=== PATIENT | male | born 1980 | race Caucasian/White ===

== ENCOUNTER 2021-10-07 15:25 | Emergency (ER) | payer OTHER, SELFPAY ==
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
[2021-10-07 15:35] VITALS: BP 121/77; PULSE 71; RESP 14; TEMP 36.7; O2SAT 97
[2021-10-07 15:45] VITALS: BP 121/77; PULSE 71; RESP 14; TEMP 36.7; O2SAT 97
== END 2021-10-07 15:46 | disposition home or self-care (01) ==
PROVIDERS: Emergency Provider Nurse Practitioner Family; PCP Internal Medicine
DX: T21.12XA Burn of first degree of abdominal wall, initial encounter (principal); X15.3XXA Contact with hot saucepan or skillet, initial encounter; Z79.82 Long term (current) use of aspirin; I25.10 Atherosclerotic heart disease of native coronary artery without angina pectoris; Z95.5 Presence of coronary angioplasty implant and graft; I25.2 Old myocardial infarction; J44.9 Chronic obstructive pulmonary disease, unspecified; K21.9 Gastro-esophageal reflux disease without esophagitis; F32.A Depression, unspecified
CPT/HCPCS: 99213; G0463

== ENCOUNTER 2022-01-24 09:47 | Emergency (ER) | payer OTHER, SELFPAY ==
--- NOTE | ~2022-01-24 | XR_ITS ---
EXAMINATION: XR chest 2V DATE: 01/24/2022 10:32 INDICATION: Coarse lung sounds, cough TECHNIQUE: PA and lateral views of the chest are obtained. COMPARISON: 03/18/2018 FINDINGS: There are minimal airspace opacities of the right middle lobe. No pleural effusion or pneum othorax. The cardiomediastinal silhouette is normal. The visualized bones and soft tissues are unrema rkable. IMPRESSION: 1. Minimal airspace opacities of the right middle lobe, consistent with atelectasis versus pneumonia. Reviewed, dictated and finalized at location A. [facility] IMPRESSION: 1. Minimal airspace opacities of the right middle lobe, consistent with atelect asis versus pneumonia.
[2022-01-24 09:57] VITALS: BP 127/78; PULSE 74; RESP 24; TEMP 36.3; O2SAT 95
--- NOTE | 2022-01-24 10:19 | ED.URI ---
HPI - URI/Sore Throat General Chief Complaint: Upper Respiratory Infection Stated Complaint: cough throat ear pain eyes matting Time Seen by Provider: 01/24/22 10:19 Source: patient, RN notes reviewed and old records reviewed Mode of arrival: ambulatory Limitations: no limitations History of Present Illness HPI Narrative: [age] year male presents to the [facility] with of throat pain, ear pain, eyes matted, Cough. Has a history of asthma. patient acutely ill. Denies fevers. Related Data Home Medications Medication Instructions Recorded Confirmed aspirin 81 mg chewable tablet 81 mg PO DAILY 10/07/21 01/24/22 atorvastatin 80 mg tablet 80 mg PO DAILY 10/07/21 01/24/22 carbamazepine 200 mg tablet 200 mg PO Q12H 10/07/21 01/24/22 fenofibrate 160 mg tablet 160 mg PO DAILY 10/07/21 01/24/22 glimepiride 1 mg tablet 1 mg PO DAILY 10/07/21 01/24/22 isosorbide dinitrate 30 mg tablet 30 mg PO BID 10/07/21 01/24/22 loratadine 10 mg tablet 10 mg PO DAILY 10/07/21 01/24/22 metoprolol succinate 100 mg 100 mg PO DAILY 10/07/21 01/24/22 tablet,extended release 24 hr pioglitazone 15 mg tablet 15 mg PO DAILY 10/07/21 01/24/22 ticagrelor 90 mg tablet (Brilinta) 90 mg PO Q12H 10/07/21 01/24/22 trazodone 50 mg tablet 50 mg PO HS 10/07/21 01/24/22 ziprasidone HCl 60 mg capsule 60 mg PO BID 10/07/21 01/24/22 albuterol sulfate 90 mcg/actuation See Rx Instructions .Route 01/24/22 01/24/22 aerosol inhaler .COMPLEX PRN sob Allergies Allergy/AdvReac Type Severity Reaction Status Date / Time famotidine Allergy Mild Rash Verified 10/07/21 15:41 lansoprazole Allergy Unknown Rash Verified 10/07/21 15:41 Review of Systems Review of Systems: All systems reviewed & are unremarkable except as noted in HPI and below Constitutional: Constitutional: Reports as per HPI, Reports chills, Reports fatigue and Reports fever(s) Eyes: Eyes: Reports as per HPI, Denies change in vision and Denies photophobia ENT: Reports as per HPI Cardiovascular: Cardiovascular: Reports no additional cardiovascular complaints Respiratory: Respiratory: Reports chest congestion, Reports cough and Reports dyspnea Gastrointestinal: Gastrointestinal: Reports no additional gastrointestinal complaints Musculoskeletal: Musculoskeletal: Reports no additional musculoskeletal complaints Integumentary/Breasts: Skin/Breast: Reports system reviewed and no additional complaints, except as docu Neurologic: Reports system reviewed and no additional complaints, except as documented Psychiatric: Psychiatric: Reports no additional psychiatric complaints Allergic/Immunologic: Allergic/Immunologic: Reports no additional allergic/immunologic complaints PMFSH Past Medical History Medical History Asthma Diabetes High cholesterol History of high blood pressure Comments At the time of my signature, I reviewed and agree with the nursing past medical, surgical, social, and family history. There is no relevant family history pertinent to the patient complaint. Exam Const: General: comfortable, no acute distress, well developed, alert, ill appearing ( acute on chronic) acutely and chronically and well nourished Nutritional Appearance: well nourished and obese morbidly obese Orientation/consciousness: patient oriented x3 Limitations: no limitations HENMT: Head: normal to inspection Ears: external ears normal, TM's normal bilaterally and EAC's normal Face/Nose/Sinus: Normal external nose present and Normal nares present Face and sinus: normal facial exam Mouth: Yes Normal oral and palatal mucosa present, Yes lip normal and Yes moist mucous membranes Throat: posterior oropharynx normal and uvula midline Eyes: General: appearance normal, both eyes and all related structures Pupils: Equal, round and reactive pupils present Neck: Neck: normal visual inspection, full ROM, no lymphadenopathy and no meningeal signs Chest: Ches
== END 2022-01-24 11:25 | disposition home or self-care (01) ==
PROVIDERS: Emergency Provider Nurse Practitioner; PCP Internal Medicine
DX: J18.1 Lobar pneumonia, unspecified organism (principal); H10.9 Unspecified conjunctivitis; Z20.822 Contact with and (suspected) exposure to COVID-19; M19.90 Unspecified osteoarthritis, unspecified site; E78.00 Pure hypercholesterolemia, unspecified; I10 Essential (primary) hypertension; E11.9 Type 2 diabetes mellitus without complications; Z79.82 Long term (current) use of aspirin
CPT/HCPCS: 71046; 87081; 87426; 87804; 87880; 99213; C9803; G0463

== ENCOUNTER 2022-02-11 11:07 | Emergency (ER) | payer OTHER, SELFPAY ==
--- NOTE | 2022-02-11 11:13 | ED.URI ---
HPI - URI/Sore Throat General Chief Complaint: Upper Respiratory Infection Stated Complaint: Cough/Sore Throat Time Seen by Provider: 02/11/22 11:13 Source: patient and RN notes reviewed History of Present Illness HPI Narrative: patient is a 41-year-old male who presents to urgent care with complaints of persistent cough, postnasal drainage and right ear pain. Patient states it has been ongoing for approximately 1 week. Patient was on doxycycline on January 24 for pneumonia, diagnosed at our facility. Patient continues to smoke 2 packs per day. Patient denies any recent fevers, shortness of breath or chest discomfort. Patient has not taken anything [id number] for his right ear discomfort. No other acute complaints. No acute distress noted. Patient aware of the plan of care. Some parts of this dictation were generated by voice recognition software and may contain typographical and/or grammatical inaccuracies. Related Data Home Medications Medication Instructions Recorded Confirmed aspirin 81 mg chewable tablet 81 mg PO DAILY 10/07/21 02/11/22 atorvastatin 80 mg tablet 80 mg PO DAILY 10/07/21 02/11/22 carbamazepine 200 mg tablet 200 mg PO Q12H 10/07/21 02/11/22 fenofibrate 160 mg tablet 160 mg PO DAILY 10/07/21 02/11/22 glimepiride 1 mg tablet 1 mg PO DAILY 10/07/21 02/11/22 isosorbide dinitrate 30 mg tablet 30 mg PO BID 10/07/21 02/11/22 loratadine 10 mg tablet 10 mg PO DAILY 10/07/21 02/11/22 metoprolol succinate 100 mg 100 mg PO DAILY 10/07/21 02/11/22 tablet,extended release 24 hr pioglitazone 15 mg tablet 15 mg PO DAILY 10/07/21 02/11/22 ticagrelor 90 mg tablet (Brilinta) 90 mg PO Q12H 10/07/21 02/11/22 trazodone 50 mg tablet 50 mg PO HS 10/07/21 02/11/22 ziprasidone HCl 60 mg capsule 60 mg PO BID 10/07/21 02/11/22 albuterol sulfate 90 mcg/actuation See Rx Instructions .Route 01/24/22 02/11/22 aerosol inhaler .COMPLEX PRN sob Allergies Allergy/AdvReac Type Severity Reaction Status Date / Time famotidine Allergy Mild Rash Verified 02/11/22 11:33 lansoprazole Allergy Unknown Rash Verified 02/11/22 11:33 Review of Systems Review of Systems: CONSTITUTIONAL: Denies fever, chills, or sweats. EYES: Denies visual changes, redness, or discharge. ENT: Denies rhinorrhea, congestion. reports postnasal drainage and right otalgia CARDIOVASCULAR: Denies chest pain, palpitations, or edema. RESPIRATORY: Reports of persistent chronic cough GASTROINTESTINAL: Denies abdominal pain, nausea, vomiting, or diarrhea. GENITOURINARY: Denies dysuria or hematuria. SKIN: Denies rash or itching. MUSCULOSKELETAL: Denies back pain, joint pain, or myalgia. NEUROLOGIC: Denies headache, numbness, or weakness. All other systems reviewed are negative, except as documented in HPI. [facility] Past Medical History Medical History Asthma Diabetes High cholesterol History of high blood pressure Comments At the time of my signature, I reviewed and agree with the nursing past medical, surgical, social, and family history. There is no relevant family history pertinent to the patient complaint. Exam Narrative: GENERAL: This is a well-nourished, well-developed patient, in no apparent distress. HEAD: normocephalic, atraumatic. EYES: PERRL. Sclera clear/white. Vision is grossly intact. EARS: External ears normal, auditory canals clear and without drainage, mild right eustachian tube dysfunction.TMs normal without perforation. Hearing grossly intact. NOSE: External nose normal with no obvious nasal discharge, nares without redness, Clear rhinorrhea. THROAT: Mucous membranes moist, mild erythema to posterior pharynx with moderate postnasal drainage. NECK: Neck supple, non-tender without lymphadenopathy, masses or thyromegaly. RESPIRATORY: Crackles throughout with mild inspiratory wheezes SKIN: warm, intact with no suspicious lesions or rash, good texture and turgor. NEURO: awake, rubia
[2022-02-11 11:15] VITALS: BP 124/76; PULSE 71; RESP 16; TEMP 36.5; O2SAT 97
== END 2022-02-11 11:40 | disposition home or self-care (01) ==
PROVIDERS: Emergency Provider Nurse Practitioner Family; PCP Internal Medicine
DX: J06.9 Acute upper respiratory infection, unspecified (principal); Z79.82 Long term (current) use of aspirin; J45.909 Unspecified asthma, uncomplicated; E11.9 Type 2 diabetes mellitus without complications; E78.00 Pure hypercholesterolemia, unspecified
CPT/HCPCS: 99213; G0463

== ENCOUNTER 2022-03-01 09:51 | Emergency (ER) | payer OTHER, SELFPAY ==
[2022-03-01 10:00] VITALS: BP 146/76; PULSE 81; RESP 20; TEMP 36.7
--- NOTE | 2022-03-01 10:28 | ED.URI ---
HPI - URI/Sore Throat General Chief Complaint: Upper Respiratory Infection Stated Complaint: cold flu right eye Time Seen by Provider: 03/01/22 10:29 Source: patient, RN notes reviewed and old records reviewed Mode of arrival: ambulatory Limitations: no limitations History of Present Illness HPI Narrative: 41-year-old male who presents to Express Care with complaints of cough. congestion with shortness of breath with expectoration of some clear mucus since yesterday. Patient denies any recent fevers patient reports he has been taking DayQuil and NyQuil and also has used his inhaler. Patient states his abdomen is tender from coughing so much. Patient is heavy smoker of 1 1/2-2 packs cigarettes per day, was seen 2 weeks ago with similar symptoms. and took some steroids. MD elicited complaint: cough, sore throat, rhinorrhea and nasal congestion Pertinent past history: COPD, asthma and other (tobacco abuse) Onset (ago): day(s) (2) Treatments prior to arrival: other (DayQuil and NyQuil,inhaler, lamarsadi Baker) Related Data Home Medications Medication Instructions Recorded Confirmed aspirin 81 mg chewable tablet 81 mg PO DAILY 10/07/21 02/11/22 atorvastatin 80 mg tablet 80 mg PO DAILY 10/07/21 02/11/22 carbamazepine 200 mg tablet 200 mg PO Q12H 10/07/21 02/11/22 fenofibrate 160 mg tablet 160 mg PO DAILY 10/07/21 02/11/22 glimepiride 1 mg tablet 1 mg PO DAILY 10/07/21 02/11/22 isosorbide dinitrate 30 mg tablet 30 mg PO BID 10/07/21 02/11/22 loratadine 10 mg tablet 10 mg PO DAILY 10/07/21 02/11/22 metoprolol succinate 100 mg 100 mg PO DAILY 10/07/21 02/11/22 tablet,extended release 24 hr pioglitazone 15 mg tablet 15 mg PO DAILY 10/07/21 02/11/22 ticagrelor 90 mg tablet (Brilinta) 90 mg PO Q12H 10/07/21 02/11/22 trazodone 50 mg tablet 50 mg PO HS 10/07/21 02/11/22 ziprasidone HCl 60 mg capsule 60 mg PO BID 10/07/21 02/11/22 albuterol sulfate 90 mcg/actuation See Rx Instructions .Route 01/24/22 02/11/22 aerosol inhaler .COMPLEX PRN sob Allergies Allergy/AdvReac Type Severity Reaction Status Date / Time famotidine Allergy Mild Rash Verified 02/11/22 11:33 lansoprazole Allergy Unknown Rash Verified 02/11/22 11:33 Review of Systems Review of Systems: CONSTITUTIONAL: Denies malaise, chills, sweats, or fever. EYES: Denies visual changes, redness, or discharge. ENT: Reports rhinorrhea, congestion, no sinus pain, no otalgia some sore throat. CARDIOVASCULAR: Denies chest pain, palpitations, or edema. RESPIRATORY: Reports cough.? Reports dyspnea. GASTROINTESTINAL: Denies abdominal pain, nausea, vomiting, diarrhea SKIN: Denies rash or itching. MUSCULOSKELETAL: Denies myalgia. NEUROLOGIC: Denies headache. All systems reviewed & are unremarkable except as noted in HPI and below PMFSH Past Medical History Medical History (Updated 03/11/22 @ 09:20 by Charlotte Hanson NP) Anxiety and depression Asthma CAD (coronary artery disease) COPD (chronic obstructive pulmonary disease) COVID-19 2020 Diabetes GERD (gastroesophageal reflux disease) High cholesterol History of high blood pressure Surgical History Surgical History (Updated 03/11/22 @ 09:15 by Charlotte Hanson NP) H/O heart artery stent History of carpal tunnel release of both wrists Social History Social History (Updated 03/01/22 @ 10:43 by Charlotte Hanson NP) Smoking packs per day: 1.5 Smoking cigarettes per day: 30.0 Years smoked: 20 Smoking pack-years: 30.00 Smoking status: Current every day smoker Tobacco type: cigarettes Alcohol intake: former Substance use type: does not use Gender identity (if verbalized by the patient): Male Comments At time of signature, agree with nursing past medical, surgical, social and family history. There is no relevant family history pertinent to the presenting complaint Exam Narrative: GENERAL: Well-appearing, well-nourished,obese, and in no acute distress. HEAD: Normocephalic EYES: P
== END 2022-03-01 10:57 | disposition home or self-care (01) ==
PROVIDERS: Emergency Provider Registered Nurse; PCP Internal Medicine
DX: J40 Bronchitis, not specified as acute or chronic (principal); J06.9 Acute upper respiratory infection, unspecified; F17.210 Nicotine dependence, cigarettes, uncomplicated; J45.909 Unspecified asthma, uncomplicated; E11.9 Type 2 diabetes mellitus without complications; E78.00 Pure hypercholesterolemia, unspecified; I10 Essential (primary) hypertension; I25.10 Atherosclerotic heart disease of native coronary artery without angina pectoris; Z95.5 Presence of coronary angioplasty implant and graft
CPT/HCPCS: 99213; G0463

== ENCOUNTER 2022-05-24 12:19 | Emergency (ER) | payer MEDICARE, SELFPAY ==
[2022-05-24 12:26] VITALS: BP 143/77; PULSE 82; RESP 16; TEMP 36.2; O2SAT 94
--- NOTE | 2022-05-24 12:47 | ED.EAR ---
HPI - Ear Problem General Chief complaint: Ear Stated complaint: congestion and ear pain Time Seen by Provider: 05/24/22 12:45 Source: patient and RN notes reviewed Mode of arrival: ambulatory Limitations: no limitations History of Present Illness HPI Narrative: 41-year-old male presents with concern for right ear pain this started today. Reports he has had upper respiratory symptoms and a cough for a week, he saw his doctor who gave him Gerry Baker. He reports the cough is not improving. He is a heavy smoker MD Complaint: ear pain Related Data Home Medications Medication Instructions Recorded Confirmed aspirin 81 mg chewable tablet 81 mg PO DAILY 10/07/21 02/11/22 atorvastatin 80 mg tablet 80 mg PO DAILY 10/07/21 02/11/22 carbamazepine 200 mg tablet 200 mg PO Q12H 10/07/21 02/11/22 fenofibrate 160 mg tablet 160 mg PO DAILY 10/07/21 02/11/22 glimepiride 1 mg tablet 1 mg PO DAILY 10/07/21 02/11/22 isosorbide dinitrate 30 mg tablet 30 mg PO BID 10/07/21 02/11/22 loratadine 10 mg tablet 10 mg PO DAILY 10/07/21 02/11/22 metoprolol succinate 100 mg 100 mg PO DAILY 10/07/21 02/11/22 tablet,extended release 24 hr pioglitazone 15 mg tablet 15 mg PO DAILY 10/07/21 02/11/22 ticagrelor 90 mg tablet (Brilinta) 90 mg PO Q12H 10/07/21 02/11/22 trazodone 50 mg tablet 50 mg PO HS 10/07/21 02/11/22 ziprasidone HCl 60 mg capsule 60 mg PO BID 10/07/21 02/11/22 albuterol sulfate 90 mcg/actuation See Rx Instructions .Route 01/24/22 02/11/22 aerosol inhaler .COMPLEX PRN sob amitriptyline 25 mg tablet mg 05/24/22 azelastine 137 mcg (0.1 %) nasal intranasal 05/24/22 spray aerosol budesonide-formoterol HFA 160 inhalation 05/24/22 mcg-4.5 mcg/actuation aerosol inhaler (Symbicort) cyclobenzaprine 5 mg tablet mg 05/24/22 hydroxyzine HCl 50 mg tablet mg 05/24/22 metformin 500 mg tablet mg 05/24/22 naproxen 500 mg tablet mg 05/24/22 pantoprazole 20 mg tablet,delayed mg PO 05/24/22 release tramadol 50 mg tablet mg 05/24/22 Allergies Allergy/AdvReac Type Severity Reaction Status Date / Time famotidine Allergy Mild Rash Verified 02/11/22 11:33 lansoprazole Allergy Unknown Rash Verified 02/11/22 11:33 Review of Systems Review of Systems: CONSTITUTIONAL: Reports malaise. Denies chills, sweats, or fever. EYES: Denies visual changes, redness, or discharge. ENT: Reports rhinorrhea, congestion, sinus pain, and sore throat. Reports right ear pain CARDIOVASCULAR: Denies chest pain, palpitations, or edema. RESPIRATORY: Reports cough. Denies dyspnea. GASTROINTESTINAL: Denies abdominal pain, nausea, vomiting, diarrhea SKIN: Denies rash or itching. MUSCULOSKELETAL: Denies myalgia. NEUROLOGIC: Denies headache. All systems reviewed & are unremarkable except as noted in HPI and below PMFSH Past Medical History Medical History (Updated 05/24/22 @ 12:53 by Sruthi Sharpe NP) Anxiety and depression Asthma CAD (coronary artery disease) COPD (chronic obstructive pulmonary disease) COVID-19 2020 Diabetes GERD (gastroesophageal reflux disease) High cholesterol History of high blood pressure Surgical History Surgical History (Updated 03/11/22 @ 09:15 by Charlotte Hanson NP) H/O heart artery stent History of carpal tunnel release of both wrists Social History Social History (Updated 03/01/22 @ 10:43 by Charlotte Hanson NP) Smoking packs per day: 1.5 Smoking cigarettes per day: 30.0 Years smoked: 20 Smoking pack-years: 30.00 Smoking status: Current every day smoker Tobacco type: cigarettes Alcohol intake: former Substance use type: does not use Gender identity (if verbalized by the patient): Male Comments At time of signature, agree with nursing past medical, surgical, social and family history. There is no relevant family history pertinent to the presenting complaint Exam Narrative: GENERAL: Nontoxic appearing and in no acute distress. HEAD: Normocephalic EYES: PERRLA, conjunctivae c
== END 2022-05-24 12:59 | disposition home or self-care (01) ==
PROVIDERS: Emergency Provider Nurse Practitioner; PCP Internal Medicine
DX: J45.909 Unspecified asthma, uncomplicated (principal); H66.93 Otitis media, unspecified, bilateral; J40 Bronchitis, not specified as acute or chronic; J44.9 Chronic obstructive pulmonary disease, unspecified; E11.9 Type 2 diabetes mellitus without complications; K21.9 Gastro-esophageal reflux disease without esophagitis; E78.00 Pure hypercholesterolemia, unspecified; I10 Essential (primary) hypertension; I25.10 Atherosclerotic heart disease of native coronary artery without angina pectoris; Z95.5 Presence of coronary angioplasty implant and graft; F32.A Depression, unspecified; F17.210 Nicotine dependence, cigarettes, uncomplicated
CPT/HCPCS: 99213; G0463

== ENCOUNTER 2022-10-17 17:44 | Emergency (ER) | payer MEDICARE, MEDICAID, SELFPAY ==
[2022-10-17 17:45] VITALS: BP 137/87; PULSE 88; RESP 20; TEMP 37.1; O2SAT 96
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
== END 2022-10-17 18:05 | disposition home or self-care (01) ==
PROVIDERS: Emergency Provider Nurse Practitioner Family
DX: S61.201A Unspecified open wound of left index finger without damage to nail, initial encounter (principal); W26.0XXA Contact with knife, initial encounter; J44.9 Chronic obstructive pulmonary disease, unspecified; E11.9 Type 2 diabetes mellitus without complications; K21.9 Gastro-esophageal reflux disease without esophagitis; E78.00 Pure hypercholesterolemia, unspecified; Z95.5 Presence of coronary angioplasty implant and graft; I10 Essential (primary) hypertension; Z86.16 Personal history of COVID-19; F17.210 Nicotine dependence, cigarettes, uncomplicated; F32.A Depression, unspecified; Z79.82 Long term (current) use of aspirin
CPT/HCPCS: 99212; G0463

== ENCOUNTER 2023-07-04 18:52 | Emergency (ER) | payer MEDICARE, MEDICAID, SELFPAY ==
[2023-07-04 19:00] VITALS: BP 134/83; PULSE 86; RESP 20; TEMP 36.7; O2SAT 95
--- NOTE | 2023-07-04 19:10 | ED.GENADULT ---
HPI - General Adult General Chief complaint: Nausea/Vomiting/Diarrhea Stated complaint: Nausea/Leg Pain Source: patient, RN notes reviewed and old records reviewed Mode of arrival: ambulatory Limitations: no limitations History of Present Illness HPI narrative: 42-year-old male patient presents to [facility] with complaints back pain, bilateral leg pain and nausea. Patient states pain started after moving several objects out of storage. Patient states then took naproxen for back and leg pain and became nauseated. Patient states normally naproxen does not make him nauseated. Patient states some Pepto-Bismol with some relief. Related Data Home Medications Medication Instructions Recorded Confirmed aspirin 81 mg chewable tablet 81 mg PO DAILY 10/07/21 07/04/23 atorvastatin 80 mg tablet 80 mg PO DAILY 10/07/21 07/04/23 carbamazepine 200 mg tablet 200 mg PO Q12H 10/07/21 07/04/23 fenofibrate 160 mg tablet 160 mg PO DAILY 10/07/21 07/04/23 glimepiride 1 mg tablet 1 mg PO DAILY 10/07/21 07/04/23 metoprolol succinate 100 mg 100 mg PO DAILY 10/07/21 07/04/23 tablet,extended release 24 hr ticagrelor 90 mg tablet (Brilinta) 90 mg PO Q12H 10/07/21 07/04/23 amitriptyline 25 mg tablet 25 mg PO DAILY 05/24/22 07/04/23 metformin 500 mg tablet 500 mg PO BID 05/24/22 07/04/23 naproxen 500 mg tablet 500 mg PO BID 05/24/22 07/04/23 pantoprazole 20 mg tablet,delayed 20 mg PO DAILY 05/24/22 07/04/23 release empagliflozin 10 mg tablet 10 mg PO QAM 10/17/22 07/04/23 (Jardiance) gabapentin 300 mg capsule 300 mg PO HS 10/17/22 07/04/23 isosorbide mononitrate 30 mg 30 mg PO DAILY 10/17/22 07/04/23 tablet,extended release 24 hr levocetirizine 5 mg tablet 5 mg PO DAILY 10/17/22 07/04/23 magnesium 200 mg tablet 400 mg PO BID 10/17/22 07/04/23 mirtazapine 15 mg disintegrating 15 mg PO DAILY 10/17/22 07/04/23 tablet montelukast 10 mg tablet 10 mg PO DAILY 10/17/22 07/04/23 (Singulair) ziprasidone HCl 40 mg capsule 40 mg PO QAM 10/17/22 07/04/23 (Geodon) ziprasidone HCl 60 mg capsule 60 mg PO QPM 10/17/22 07/04/23 (Geodon) Allergies Allergy/AdvReac Type Severity Reaction Status Date / Time famotidine Allergy Mild Rash Verified 07/04/23 19:19 lansoprazole Allergy Unknown Rash Verified 07/04/23 19:19 Review of Systems Constitutional: Constitutional: Reports no additional constitutional complaints, Denies body ache(s), Denies chills, Denies fatigue, Denies fever(s) and Denies headache(s) Eyes: Eyes: Reports no additional eye complaints and Denies blurry vision ENT: Reports system reviewed and no additional complaints, except as documented, Denies vertigo, Denies dizziness, Denies ear discharge, Denies otalgia, Denies facial pain, Denies headache(s), Denies nasal congestion, Denies nasal discharge, Denies sinus pain, Denies sinus pressure and Denies sore throat Cardiovascular: Cardiovascular: Reports no additional cardiovascular complaints, Denies chest pain, Denies chest pain at rest, Denies rapid heart rate and Denies dyspnea Respiratory: Respiratory: Reports no additional respiratory complaints, Denies chest congestion, Denies cough, Denies pain on inspiration, Denies pain with cough and Denies dyspnea Gastrointestinal: Gastrointestinal: Denies abdominal pain, Denies diarrhea, Reports nausea and Denies vomiting Musculoskeletal: Musculoskeletal: Reports back pain and Reports other ( Bilateral leg pain) Integumentary/Breasts: Skin/Breast: Denies rash Neurologic: Reports system reviewed and no additional complaints, except as documented, Denies vertigo, Denies dizziness and Denies headache(s) Endocrine: Endocrine: Denies fatigue [facility] Past Medical History Medical History Anxiety and depression Asthma CAD (coronary artery disease) COPD (chronic obstructive pulmonary disease) COVID-19 2020 Diabetes GERD (gastroesophageal reflux disease) High cholesterol History of hi
== END 2023-07-04 19:27 | disposition home or self-care (01) ==
PROVIDERS: Emergency Provider Registered Nurse
DX: S29.012A Strain of muscle and tendon of back wall of thorax, initial encounter (principal); S39.012A Strain of muscle, fascia and tendon of lower back, initial encounter; S89.81XA Other specified injuries of right lower leg, initial encounter; S89.82XA Other specified injuries of left lower leg, initial encounter; I25.10 Atherosclerotic heart disease of native coronary artery without angina pectoris; J44.9 Chronic obstructive pulmonary disease, unspecified; E11.9 Type 2 diabetes mellitus without complications; Z79.84 Long term (current) use of oral hypoglycemic drugs; K21.9 Gastro-esophageal reflux disease without esophagitis; E78.00 Pure hypercholesterolemia, unspecified; I10 Essential (primary) hypertension; Z95.5 Presence of coronary angioplasty implant and graft; F17.210 Nicotine dependence, cigarettes, uncomplicated; Z79.82 Long term (current) use of aspirin
CPT/HCPCS: 99213; G0463